=== PATIENT | female | born 1985 | race Caucasian/White ===

== ENCOUNTER 2020-08-06 03:05 | Inpatient (IN) | payer OTHER ==
[2020-08-06 04:06] VITALS: BMI 25.7
[2020-08-06] MEDS: DEXTROSE 5%-LACTATED RINGERS 1,000 ML IV SCH (05:50)
[2020-08-06 06:22] LABS: BASO % 0.1 % (0-2.0); EOS % 0.3 % (0-4.5); HEMATOCRIT 37.4 % (32.4-45.2); HEMOGLOBIN 12.4 GM/dL (10.7-15.3); LYMPH % 7.5 % (8-40); MCH 30.3 pg (25.7-33.7); MCHC 33.2 g/dl (32.0-36.0); MEAN CELL VOLUME 91.2 fl (80-96); MEAN PLT VOLUME 9.9 fl (7.5-11.1); MONO % 5.5 % (3.8-10.2); NEUT % 86.6 % (42.8-82.8); PLATELET COUNT 192 10^3/uL (134-434); RDW 14.2 % (11.6-15.6); WHITE BLOOD COUNT 14.1 K/mm3 (4.0-10.0)
[2020-08-06 06:31] LABS: INR 0.88 (0.83-1.09); PROTHROMBIN TIME (PATIENT) 10.9 SEC (9.7-13.0)
[2020-08-06 06:34] LABS: ACTIVATED PTT 29.4 SECONDS (25.2-36.5)
[2020-08-06 06:40] LABS: CALCIUM 8.8 mg/dL (8.5-10.1)
[2020-08-06 06:41] LABS: BLOOD UREA NITROGEN 13.6 mg/dL (7-18)
[2020-08-06 06:44] LABS: CREATININE 0.5 mg/dL (0.55-1.3)
[2020-08-06] MEDS ORDERED: VANCOMYCIN/WATER BAGS 1,250 MG/250 ML BAG IVPB SCH ×2 (10:15→18:00)
[2020-08-06] MEDS ORDERED: LIDOCAINE HCL 1% PRESERVATIVE FREE - 30ML VIAL ONE (11:03)
[2020-08-06] MEDS ORDERED: OXYTOCIN 20 UNITS in 0.9% NS 20 UNIT/1,000 ML INFUS.BAG IV ONE ×2 (11:03→17:11)
[2020-08-06] MEDS ORDERED: BENZOCAINE 28 GM HEMORRHOIDAL OINTMENT TP PRN (15:43)
[2020-08-06] MEDS ORDERED: BENZOCAINE 20% 57 GM BOTTLE TP PRN (15:43)
[2020-08-06] MEDS ORDERED: WITCH HAZEL 50% (TUCKS) 40 PAD/JAR PAD TP PRN (15:43)
[2020-08-06] MEDS ORDERED: BISACODYL 10 MG SUPP.RECT RC PRN (15:43)
[2020-08-06] MEDS ORDERED: IBUPROFEN 600 MG TABLET (FP) PO PRN (15:43)
[2020-08-06] MEDS ORDERED: ACETAMINOPHEN 325 MG TABLET (FP) PO PRN (15:43)
[2020-08-06] MEDS ORDERED: METHYLERGONOVINE MALEATE 0.2 MG/1 ML AMP IM PRN (15:43)
[2020-08-06] MEDS ORDERED: OXYTOCIN 20 UNITS in 0.9% NS 20 UNIT/1,000 ML INFUS.BAG IV SCH (15:45)
[2020-08-06 17:34] LABS: CORD BASE EXCESS -8.4 mmol/L (0-2); CORD HCO3 16.7 mmHg (20-29); CORD PCO2 33.8 mmHg (30-78); CORD pH 7.311 (7.14-7.44)
[2020-08-06 17:36] LABS: CORD BASE EXCESS -12.6 mmol/L (0-2); CORD HCO3 16.5 mmHg (20-29); CORD PCO2 48.7 mmHg (30-78); CORD pH 7.147 (7.14-7.44)
[2020-08-06] MEDS: FERROUS SO4 325 MG TABLET (FP) PO SCH (18:44)
[2020-08-07 08:40] LABS: BASO % 0.2 % (0-2.0); EOS % 0.1 % (0-4.5); HEMATOCRIT 31.5 % (32.4-45.2); HEMOGLOBIN 10.7 GM/dL (10.7-15.3); LYMPH % 9.9 % (8-40); MCH 30.6 pg (25.7-33.7); MCHC 33.8 g/dl (32.0-36.0); MEAN CELL VOLUME 90.5 fl (80-96); MEAN PLT VOLUME 9.9 fl (7.5-11.1); MONO % 5.5 % (3.8-10.2); NEUT % 84.3 % (42.8-82.8); PLATELET COUNT 167 10^3/uL (134-434); RBC 3.48 M/mm3 (3.60-5.2); RDW 14.2 % (11.6-15.6); WHITE BLOOD COUNT 13.8 K/mm3 (4.0-10.0)
[2020-08-07] MEDS: FERROUS SO4 325 MG TABLET (FP) PO SCH ×3 (09:00→18:02)
[2020-08-07] MEDS: DEXTROSE 5%-LACTATED RINGERS 1,000 ML IV SCH (12:03)
[2020-08-07] MEDS ORDERED: SENNOSIDES/DOCUSATE COMBO (SENNA PLUS) TABLET (UD) PO PRN (22:00)
[2020-08-08] MEDS: FERROUS SO4 325 MG TABLET (FP) PO SCH ×2 (08:36→12:31)
[2020-08-08 09:43] VITALS: BP 122/68; PULSE 78; TEMP 98.4
== END 2020-08-08 15:10 | disposition home or self-care (01) | DRG 807 ==
LOC: JDEL 03:05 → JLDR 03:45 → J3W 18:00
PROVIDERS: ADMIT Obstetrics & Gynecology; ATTEND Obstetrics & Gynecology
PROC: 10E0XZZ Delivery of Products of Conception, External Approach (ICD-10-PCS; principal; 2020-08-06)
PROC: 0KQM0ZZ Repair Perineum Muscle, Open Approach (ICD-10-PCS; 2020-08-06)
PROC: 0W8NXZZ Division of Female Perineum, External Approach (ICD-10-PCS; 2020-08-06)
DX: O48.0 Post-term pregnancy (principal); Z37.0 Single live birth; O99.824 Streptococcus B carrier state complicating childbirth; O70.1 Second degree perineal laceration during delivery; O90.81 Anemia of the puerperium; Z3A.40 40 weeks gestation of pregnancy; Z14.8 Genetic carrier of other disease; Z87.42 Personal history of other diseases of the female genital tract; Z88.0 Allergy status to penicillin
CPT/HCPCS: 36415; 36600; 59025; 59409; 80048; 82803; 85025; 85610; 85730; 86780; 86850; 86870; 86900; 86901; 86902

== ENCOUNTER 2022-12-12 00:08 | Inpatient (IN) | payer OTHER ==
[2022-12-12] MEDS ORDERED: OXYTOCIN 20 UNITS in 0.9% NS 20 UNIT/1,000 ML INFUS.BAG IV ONE (01:16)
[2022-12-12] MEDS ORDERED: LIDOCAINE HCL 1% PRESERVATIVE FREE - 30ML VIAL ONE ×2 (01:16→01:48)
[2022-12-12 01:34] LABS: BASO % 0.2 % (0-2.0); EOS % 0.1 % (0-4.5); HEMATOCRIT 35.8 % (32.4-45.2); HEMOGLOBIN 12.3 GM/dL (10.7-15.3); LYMPH % 5.4 % (8-40); MCHC 34.4 g/dl (32.0-36.0); MEAN CELL VOLUME 87.1 fl (80-96); MEAN PLT VOLUME 8.2 fl (7.5-11.1); MONO % 4.7 % (3.8-10.2); NEUT % 89.6 % (42.8-82.8); PLATELET COUNT 227 10^3/uL (134-434); RDW 13.6 % (11.6-15.6); WHITE BLOOD COUNT 17.8 K/mm3 (4.0-10.0)
[2022-12-12 01:47] VITALS: BMI 25.4
[2022-12-12 01:55] LABS: POTASSIUM 3.8 mmol/L (3.5-5.1)
[2022-12-12 01:56] LABS: CALCIUM 8.8 mg/dL (8.5-10.1)
[2022-12-12 01:57] LABS: BLOOD UREA NITROGEN 20.6 mg/dL (7-18)
[2022-12-12 02:00] LABS: CREATININE 0.6 mg/dL (0.55-1.3)
[2022-12-12 02:18] LABS: INR 0.92 (0.83-1.09); PROTHROMBIN TIME (PATIENT) 10.7 SEC (9.7-13.0)
[2022-12-12 02:20] LABS: ACTIVATED PTT 25.7 SECONDS (25.2-36.5)
[2022-12-12] MEDS ORDERED: WITCH HAZEL 50% (TUCKS) 40 PAD/JAR PAD TP PRN (03:05)
[2022-12-12] MEDS ORDERED: BENZOCAINE 28 GM HEMORRHOIDAL OINTMENT TP PRN (03:05)
[2022-12-12] MEDS ORDERED: BISACODYL 10 MG SUPP.RECT RC PRN (03:05)
[2022-12-12] MEDS ORDERED: IBUPROFEN 600 MG TABLET (FP) PO PRN (03:05)
[2022-12-12] MEDS ORDERED: METHYLERGONOVINE MALEATE 0.2 MG/1 ML AMP IM PRN (03:05)
[2022-12-12] MEDS ORDERED: BENZOCAINE 20% 57 GM BOTTLE TP PRN (03:05)
[2022-12-12] MEDS ORDERED: ACETAMINOPHEN 325 MG TABLET (FP) PO PRN (03:05)
[2022-12-12] MEDS ORDERED: OXYTOCIN 20 UNITS in 0.9% NS 20 UNIT/1,000 ML INFUS.BAG IV SCH (03:15)
[2022-12-12 03:44] LABS: CORD BASE EXCESS -4.9 mmol/L (0-2); CORD HCO3 23.3 mmHg (20-29); CORD PCO2 55.4 mmHg (30-78); CORD pH 7.241 (7.14-7.44)
[2022-12-12 03:49] LABS: CORD BASE EXCESS -3.5 mmol/L (0-2); CORD HCO3 20.5 mmHg (20-29); CORD PCO2 34.1 mmHg (30-78); CORD pH 7.396 (7.14-7.44)
[2022-12-12] MEDS: PRENATAL VITAMINS W/ FOLIC ACID TABLET (FP) PO SCH (09:23)
[2022-12-13 07:54] LABS: BASO % 0.3 % (0-2.0); EOS % 0.8 % (0-4.5); HEMATOCRIT 29.2 % (32.4-45.2); HEMOGLOBIN 9.7 GM/dL (10.7-15.3); LYMPH % 13.1 % (8-40); MCH 29.9 pg (25.7-33.7); MCHC 33.4 g/dl (32.0-36.0); MEAN CELL VOLUME 89.6 fl (80-96); MONO % 5.2 % (3.8-10.2); NEUT % 80.6 % (42.8-82.8); PLATELET COUNT 213 10^3/uL (134-434); RBC 3.25 M/mm3 (3.60-5.2); RDW 13.8 % (11.6-15.6); WHITE BLOOD COUNT 12.6 K/mm3 (4.0-10.0)
[2022-12-13] MEDS: PRENATAL VITAMINS W/ FOLIC ACID TABLET (FP) PO SCH (10:53)
[2022-12-13] MEDS ORDERED: SENNOSIDES/DOCUSATE COMBO (SENNA PLUS) TABLET (UD) PO PRN (22:00)
[2022-12-14 02:06] VITALS: RESP 18
[2022-12-14] MEDS: PRENATAL VITAMINS W/ FOLIC ACID TABLET (FP) PO SCH (09:52)
[2022-12-14 10:07] VITALS: BP 112/64; PULSE 95; TEMP 98
== END 2022-12-14 12:36 | disposition home or self-care (01) | DRG 807 ==
LOC: JDEL 00:08 → JLDR 00:55 → J3W 04:44
PROVIDERS: ADMIT Obstetrics & Gynecology; ATTEND Obstetrics & Gynecology
PROC: 10D07Z8 Extraction of Products of Conception, Other, Via Natural or Artificial Opening (ICD-10-PCS; principal; 2022-12-12)
PROC: 0KQM0ZZ Repair Perineum Muscle, Open Approach (ICD-10-PCS; 2022-12-12)
DX: O48.0 Post-term pregnancy (principal); O66.0 Obstructed labor due to shoulder dystocia; O70.1 Second degree perineal laceration during delivery; Z3A.40 40 weeks gestation of pregnancy; Z37.0 Single live birth
CPT/HCPCS: 36415; 36600; 80048; 82803; 85025; 85461; 85610; 85730; 86780; 86850; 86870; 86900; 86901; 86902

== ENCOUNTER 2024-06-28 05:56 | Day surgery (SDC) | payer OTHER ==
[2024-06-24 18:00] VITALS: BMI 18.8
[2024-06-28 12:02] LABS: INR 1.22 (0.83-1.09); PROTHROMBIN TIME (PATIENT) 13.4 SEC (9.7-13.0)
[2024-06-28] MEDS ORDERED: MIDAZOLAM HCL 2 MG/2 ML SINGLE DOSE VIAL ONE (12:55)
[2024-06-28] MEDS ORDERED: SUCCINYLCHOLINE CHLORIDE 200 MG/10 ML SYRINGE ONE (12:55)
[2024-06-28] MEDS ORDERED: PROPOFOL 20 ML ONE (12:55)
[2024-06-28] MEDS ORDERED: ONDANSETRON 4 MG/2 ML VIAL IVPUSH PRN (13:04)
[2024-06-28] MEDS ORDERED: LACTATED RINGERS SOLUTION 1,000 ML IV SCH (13:15)
[2024-06-28] MEDS ORDERED: ONDANSETRON 4 MG/2 ML VIAL ONE (13:18)
[2024-06-28] MEDS: ceFAZolin SODIUM 1 GM VIAL IVPB ONE (13:30)
[2024-06-28 16:17] VITALS: BP 97/63; PULSE 60; RESP 18; TEMP 98
== END 2024-06-28 15:58 | disposition home or self-care (01) ==
LOC: JASU-SURG 05:56
PROVIDERS: ATTEND Obstetrics & Gynecology
PROC: 10D07Z8 Extraction of Products of Conception, Other, Via Natural or Artificial Opening (ICD-10-PCS; principal; 2024-06-28 16:00)
DX: Z3A.08 8 weeks gestation of pregnancy (principal)
CPT/HCPCS: 36415; 85610; 86850; 86870; 86880; 86900; 86901; 86902; 88305-TC; 94760